=== PATIENT | female | born 1980 | race Native Hawaiian/Other Pacific Islander ===

== ENCOUNTER 2019-03-19 07:49 | Outpatient (CLI) | payer OTHER ==
[~2019-03-19 07:49] MED LIST: ADIPEX PO; ADIPEX-P37.5 M1 OR; CHLOSUS43 PO; FLUT0.05 NAS; GIANVI OR; HYDR25TA60 PO; MEDROL DOSEPAK4 MG OR; Z-PAK PO
[2019-03-19 08:30] LABS: PLATELET COUNT 340 K/uL (152-353)
== END 2019-03-19 20:35 | disposition home or self-care (01) ==
LOC: LABW 07:49
PROVIDERS: Internal Medicine
DX: R53.83 Other fatigue (principal); E03.9 Hypothyroidism, unspecified
CPT/HCPCS: 36415; 80053; 82306; 82607; 82728; 83036; 83540; 83735; 84100; 84425; 84439; 84443; 84481; 85027; 85651; 86038

== ENCOUNTER 2019-08-24 07:51 | Outpatient (CLI) | payer OTHER | END 2019-08-24 22:46 | disposition home or self-care (01) | LOC: LABW 07:51 | DX: E03.8 Other specified hypothyroidism (principal); E55.9 Vitamin D deficiency, unspecified | CPT/HCPCS: 36415; 82306; 82607; 82746; 84439; 84443 ==

== ENCOUNTER 2020-01-12 07:57 | Outpatient (CLI) | payer OTHER | END 2020-01-12 23:15 | disposition home or self-care (01) | LOC: LABW 07:57 | DX: E03.9 Hypothyroidism, unspecified (principal) | CPT/HCPCS: 36415; 84439; 84443 ==

== ENCOUNTER 2020-08-08 08:10 | Outpatient (CLI) | payer OTHER ==
[2020-08-08 08:41] LABS: PLATELET COUNT 334 K/uL (152-353)
[2020-08-08 08:51] LABS: POTASSIUM 3.6 mmol/L (3.6-5.2)
== END 2020-08-08 22:47 | disposition home or self-care (01) ==
LOC: LABW 08:10
PROVIDERS: ATTEND Internal Medicine
DX: I10 Essential (primary) hypertension (principal)
CPT/HCPCS: 36415; 80053; 81000; 82043; 82570; 82607; 82746; 83735; 84100; 84155; 84439; 84443; 85027

== ENCOUNTER 2021-02-09 07:57 | Outpatient (CLI) | payer OTHER ==
[2021-02-09 08:39] LABS: PLATELET COUNT 300 K/uL (152-353)
== END 2021-02-09 22:09 | disposition home or self-care (01) ==
LOC: LABW 07:57
PROVIDERS: ATTEND Internal Medicine
DX: I10 Essential (primary) hypertension (principal); E53.8 Deficiency of other specified B group vitamins
CPT/HCPCS: 36415; 80053; 82607; 82746; 83735; 85027

== ENCOUNTER 2021-10-02 07:37 | Outpatient (CLI) | payer OTHER ==
[2021-10-02 07:54] LABS: PLATELET COUNT 337 K/uL (152-353)
[2021-10-02 08:07] LABS: POTASSIUM 4.6 mmol/L (3.6-5.2)
== END 2021-10-02 20:42 | disposition home or self-care (01) ==
LOC: LABW 07:37
PROVIDERS: ATTEND Internal Medicine
DX: R03.0 Elevated blood-pressure reading, without diagnosis of hypertension (principal)
CPT/HCPCS: 36415; 80053; 81000; 82043; 82570; 83735; 84100; 84156; 85027

== ENCOUNTER 2022-04-17 07:54 | Outpatient (CLI) | payer OTHER ==
[2022-04-17 08:35] LABS: PLATELET COUNT 304 K/uL (152-353)
== END 2022-04-17 19:13 | disposition home or self-care (01) ==
LOC: LABW 07:54
PROVIDERS: ATTEND Internal Medicine
DX: I10 Essential (primary) hypertension (principal); E66.01 Morbid (severe) obesity due to excess calories; E53.8 Deficiency of other specified B group vitamins; E03.8 Other specified hypothyroidism; E55.9 Vitamin D deficiency, unspecified; R82.998 Other abnormal findings in urine; Z79.899 Other long term (current) drug therapy
CPT/HCPCS: 36415; 80053; 81000; 82043; 82570; 82607; 82746; 83036; 83735; 84156; 84439; 84443; 85027; 87086; 87088